=== PATIENT | male | born 1955 | race Caucasian/White ===

== ENCOUNTER 2016-09-16 23:22 | Emergency (ER) | payer OTHER ==
[~2016-09-16] VITALS: Ht 180.3 cm; Wt 78.9 kg
[~2016-09-16 23:22] MED LIST: ASPIRIN81 M4 PO; ATORVASTATIN CA40 M1 PO; METOPROLOL TART25 M1 PO; NITROSTAT0.3 M1 SL; ZETIA10 M1 PO
--- NOTE | 2016-09-17 01:29 | ED NECK/BACK PAIN COMPLAINT ---
History of Present Illness General Chief Complaint: Low Back Pain/Injury Stated Complaint: "LOWER LT SIDE BACK PAIN [id number]" Source: patient Exam Limitations: no limitations Vital Signs & Intake/Output Vital Signs & Intake/Output Vital Signs Date Time Temp Pulse Resp B/P B/P Pulse O2 O2 Flow FiO2 Mean Ox Delivery Rate 09/16 2329 97.4 78 18 122/71 95 Room Air Allergies Coded Allergies: No Known Drug Allergies (02/11/16) Reconcile Medications Aspirin (Aspirin*) 81 MG TAB.CHEW 1 TAB PO DAILY HEART HEALTH (Reported) Atorvastatin Calcium 40 MG TABLET 1 TAB PO QPM CHOLESTEROL (Reported) Ezetimibe (Zetia) 10 MG TABLET 1 TAB PO DAILY CHOLESTEROL (Reported) Metoprolol Tartrate 25 MG TABLET 12.5 MG PO BID heart Nitroglycerin (Nitrostat) 0.3 MG TAB.SUBL 0.4 MG SL ONCE PRN CHEST PAIN Triage Note: 61yo mal eto triage w/co low back pain intermittent x days worse tonite.Denies any traauma or injury Triage Nurses Notes Reviewed? yes HPI: Patient presents for evaluation of a left low back pain, episodic beginning about a week ago. Patient states he has had 3 episodes, the first to resolving spontaneously. The current episode began tonight while watching TV at home. Patient's describing a sudden onset of severe dull pain that gets worse with movement. He denies any associated urinary or fecal incontinence or urinary retention. He likewise denies fever, cold symptoms, paresthesias or known trauma. He states over the past 2 hours began having a left-sided headache and left neck pain. He tried Tylenol once without relief at about 5:00 this evening. Past History Travel History Traveled to [place] past 21 day No Medical History Any Pertinent Medical History? 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 No Review of Systems Review of Systems Constitutional: Reports: no symptoms. Eyes: Reports: no symptoms. Ears, Nose, Throat, Mouth: Reports: no symptoms. Respiratory: Reports: no symptoms. Cardiovascular: Reports: no symptoms. Gastrointestinal/Abdominal: Reports: no symptoms. Musculoskeletal: Reports: see HPI. Skin: Reports: no symptoms. Neurological/Psychological: Reports: no symptoms. All Other Systems: Reviewed and Negative Physical Exam Physical Exam Neck: SEE BELOW Comments: Gen.: Well-nourished, well-developed, no acute respiratory distress. Head: Normocephalic, atraumatic. Eyes: Normal inspection bilaterally Ears: Normal inspection bilaterally Nose: Normal inspection Throat/mouth : Moist mucosa Neck: Supple, full range of motion, no goiter Heart: Regular rate and rhythm, no murmurs rubs or gallops Lungs: Clear to auscultation bilaterally with normal air entry Chest: Nontender Back: Decreased range of motion secondary to left back pain, tenderness over the posterolateral left inferior ribs without associated soft tissue swelling or ecchymoses Abdomen: Soft, nontender, nondistended, normal bowel sounds Extremities: Normal range of motion grossly, equal radial pulses, no cyanosis clubbing or edema, lower extremities: no straight leg raise sign, normal deep tendon reflexes, normal sensation to light touch Neurologic: Cranial nerves grossly intact, speech is clear Skin: warm and dry Psychiatric: Calm, cooperative, no apparent delusions or hallucinations Progress Differential Diagnosis: cauda equina syn, herniated disc, myofascial strain, pyelo/UTI, ureterolithiasis Plan of Care: Orders Procedure Date/time Status URINALYSIS 09/18 127 Complete CBC WITHOUT DIFFERENTIAL 09/18 127 Complete BASIC METABOLIC PANEL 09/18 127 Complete Laboratory Tests 09/17/16 0140: Anion Gap 10, Estimated GFR > 60, BUN/Creatinine Ratio 17.8, Glucose 94, Calcium 9.2, CBC w Diff NO MAN DIFF REQ, RBC 4.79, MCV 92.2, MCH 30.9, RDW 13.3, MPV 9.0 , Gran % 71.4, Lymphocytes % 17.5 L, Monocytes % 8.3, Eosinophils % 2.1, Basophils % 0.7, Absolute Granulocytes 6.7 H, Absolute Lymphocytes 1.6, Absolute Monocytes 0.8 H, Absolute Eosinophils 0.2, Absolute Basophils 0.1, PUBS MCHC 33.5 09/17/16 0139: Urine Color YEL, Urine Clarity CLEAR, Urine pH 6.0, Ur Specific Robinson 1.025, Urine Protein NEG, Urine Ketones NEG, Urine Nitrite NEG, Urine Bilirubin NEG, Urine Urobilinogen 1.0, Ur Leukocyte Esterase NEG, Ur Microscopic EXAM NOT REQUIRED, Urine Hemoglobin NEG, Urine Glucose NEG Diagnostic Imaging: Discussed w/RAD: CT Scan. Radiology Impression: PATIENT: JONATAN MATTHEW PRESENT AGE: 61 PATIENT ACCOUNT NO: [id number] : 54 LOCATION: ER ORDERING PHYSICIAN: RAF LEGGETT MD SERVICE DATE: 09/17/16 EXAM TYPE: CAT - CT ABD & PELVIS W/O IV CONTRAS EXAMINATION: CT ABDOMEN AND PELVIS WITHOUT CONTRAST CLINICAL INFORMATION: Left flank and lower rib pain. COMPARISON: Abdominal CT June 20, 2009 TECHNIQUE: Multidetector volumetric imaging was performed from the superior aspect of the liver through the pubic symphysis. Sagittal and coronal reformatted images were obtained on the technologist's workstation. FINDINGS: Atelectasis at the lung bases. Limited evaluation of the unenhanced spleen, adrenal glands, gallbladder, and pancreas reveals no definite abnormality. A 2.4 cm hypodense lesion within the right lobe of the liver is stable since the June 20, 2009 CT study, favoring a benign lesion such as a hemangioma. The kidneys are symmetric in size without evidence of hydronephrosis or nephrolithiasis. The large and small bowel are normal in caliber without evidence of mechanical obstruction. There is diffuse colonic diverticulosis without evidence of acute diverticulitis. No focal inflammatory changes adjacent to the large or the small bowel. The appendix is normal. There is no free air and there is no intra-abdominal free fluid. No mesenteric or retroperitoneal adenopathy. Bladder decompressed and not well evaluated. No pelvic adenopathy. No free fluid within the pelvis. There is a nondisplaced acute appearing fracture of the posterior left 11th rib and there is a partially healed fracture involving the posterior left 10th rib. Lumbar spondylosis. There are fat- containing inguinal hernias bilaterally. IMPRESSION: -There is a nondisplaced acute appearing fracture of the posterior left 11th rib and there is a partially healed fracture involving the posterior left 10th rib. - No radiopaque renal nor ureteral calculi. No hydroureteronephrosis. - There is diffuse colonic diverticulosis without evidence of acute diverticulitis. - A 2.4 cm hypodense lesion within the right lobe of the liver is stable since the June 20, 2009 CT study, favoring a benign lesion such as a hemangioma. - There are fat- containing inguinal hernias bilaterally. DICTATED BY: RAF RAHMAN MD DATE/ TIME DICTATED:09/17/16234 GAS OPERATION MANAGER:BRITTNI DATE/TIME TRANSCRIBED: 09/17/16234 CONFIDENTIAL, DO NOT COPY WITHOUT APPROPRIATE AUTHORIZATION. < Electronically signed in Other Vendor System> SIGNED BY: RAF RAHMAN MD 09/17/16 0246 Comments: 09/17/2016 3:54:33 AM I have updated Jonatan on his test results and have raised the possibility of a pathologic fracture. He will follow up with his primary care doctor. Departure Departure Disposition: HOME OR SELF CARE Condition: Stable Clinical Impression Primary Impression: Multiple fractures of ribs, left side, initial encounter for closed fracture Referrals: CHELE DOUGLAS,ROMARIO Pittman (PCP/Family) Additional Instructions: Ibuprofen 600 mg every 6 hours as needed for pain. Add Percocet if necessary. Follow-up with Dr. ELAINE this week for reevaluation since the cause of urinary fractures is unclear (Dr. ELAINE will have to look into whether or not there is a problem with the rib bone itself). Return if any concerns or sudden worsening. Please note that there might be incidental findings in your evaluation that are unrelated to the current emergency department visit. Please notify your primary care doctor about this emergency department visit in order to obtain and review all of the testing performed so that these incidental findings can be monitored as needed. If you had an x-ray performed, please understand that some fractures may not be seen on the initial set of x-rays. If your symptoms persist you might need a repeat set of x-rays to check for such a fracture. If you had a laceration evaluated, please understand that foreign bodies such as glass or wood may not be visible to the naked eye or on plain x-rays. If the wound becomes red, swollen, increasingly more painful or if there is any drainage from the wound, please have it reevaluated by a physician for the possibility of a retained foreign body. Thank you for choosing the [facility] Emergency Department for your care. It was a pleasure to serve you today. Raf Leggett M.D. [facility] Departure Forms: Customer Survey General Discharge Information Prescriptions: Current Visit Scripts Oxycodone HCl/Acetaminophen (Percocet 5-325 MG Tablet) 1-2 TAB PO Q6P PRN pain #20 TAB
[2016-09-17 01:50] LABS: ABSOLUTE BASOPHIL COUNT 0.1 /CUMM (0.0-0.2); ABSOLUTE EOSINOPHIL COUNT 0.2 /CUMM (0.0-0.7); ABSOLUTE GRANULOCYTE CT 6.7 /CUMM (1.4-6.5); ABSOLUTE LYMPH COUNT 1.6 /CUMM (1.2-3.4); ABSOLUTE MONOCYTE COUNT 0.8 /CUMM (0.10-0.60); BASOPHIL % 0.7 % (0.0-2.0); EOSINOPHIL % 2.1 % (0-5); GRANULOCYTE % 71.4 % (42.2-75.2); HEMATOCRIT 44.2 % (42-52); MEAN CORPUSCULAR HGB 30.9 PG (27.0-31.0); MEAN CORPUSCULAR HGB CONC 33.5 G/DL (33.0-37.0); MEAN CORPUSCULAR VOLUME 92.2 FL (80.0-94.0); PLATELET COUNT 240 /CUMM (130-400); RBC DISTRIBUTION WIDTH 13.3 % (11.5-14.5); RED BLOOD CELL CT 4.79 /CUMM (4.70-6.10); WHITE BLOOD CELL COUNT 9.4 /CUMM (4.8-10.8)
--- NOTE | 2016-09-17 02:46 | CT SCAN REPORT ---
EXAMINATION: CT ABDOMEN AND PELVIS WITHOUT CONTRAST CLINICAL INFORMATION: Left flank and lower rib pain. COMPARISON: Abdominal CT June 20, 2009 TECHNIQUE: Multidetector volumetric imaging was performed from the superior aspect of the liver through the pubic symphysis. Sagittal and coronal reformatted images were obtained on the technologist's workstation. FINDINGS: Atelectasis at the lung bases. Limited evaluation of the unenhanced spleen, adrenal glands, gallbladder, and pancreas reveals no definite abnormality. A 2.4 cm hypodense lesion within the right lobe of the liver is stable since the June 20, 2009 CT study, favoring a benign lesion such as a hemangioma. The kidneys are symmetric in size without evidence of hydronephrosis or nephrolithiasis. The large and small bowel are normal in caliber without evidence of mechanical obstruction. There is diffuse colonic diverticulosis without evidence of acute diverticulitis. No focal inflammatory changes adjacent to the large or the small bowel. The appendix is normal. There is no free air and there is no intra-abdominal free fluid. No mesenteric or retroperitoneal adenopathy. Bladder decompressed and not well evaluated. No pelvic adenopathy. No free fluid within the pelvis. There is a nondisplaced acute appearing fracture of the posterior left 11th rib and there is a partially healed fracture involving the posterior left 10th rib. Lumbar spondylosis. There are fat-containing inguinal hernias bilaterally. IMPRESSION: -There is a nondisplaced acute appearing fracture of the posterior left 11th rib and there is a partially healed fracture involving the posterior left 10th rib. - No radiopaque renal nor ureteral calculi. No hydroureteronephrosis. - There is diffuse colonic diverticulosis without evidence of acute diverticulitis. - A 2.4 cm hypodense lesion within the right lobe of the liver is stable since the June 20, 2009 CT study, favoring a benign lesion such as a hemangioma. - There are fat-containing inguinal hernias bilaterally.
[2016-09-17] MEDS ORDERED: PERCOCET 5-3251 EACH PO (03:56)
[2016-09-17 04:07] VITALS: BP 118/69
== END 2016-09-17 04:07 ==
LOC: ERH 23:22
PROVIDERS: Emergency Medicine
DX: S22.42XA Multiple fractures of ribs, left side, initial encounter for closed fracture (principal); X58.XXXA Exposure to other specified factors, initial encounter; Y92.9 Unspecified place or not applicable; Y93.9 Activity, unspecified
CPT/HCPCS: 74176; 81003; 96372; J1885